=== PATIENT | female | born 1975 | race Two or more races ===

== ENCOUNTER 2017-01-01 17:09 | Outpatient (CLI) | payer MEDICAID ==
[~2017-01-01] VITALS: Ht 162.6 cm; Wt 166.8 kg
[2017-01-01 17:25] VITALS: BP 125/60
[2017-01-01 17:54] LABS: DAU SCREEN DISCLAIMER
[2017-01-01 18:33] LABS: BLOOD UREA NITROGEN 7 mg/dL (7-18)
[2017-01-01 18:37] LABS: ASPARTATE AMINO TRANSFERASE 9 U/L (15-37)
[2017-01-01 18:52] LABS: ANISOCYTOSIS 2+
[2017-01-01 18:53] LABS: HYPOCHROMIA 1+; MICROCYTOSIS 1+; POLYCHROMASIA 1+; TARGET CELLS 1+
[2017-01-03] MEDS ORDERED: PREN1TAB60 PO (11:41)
[2017-01-03] MEDS ORDERED: GLYB5TAB3 PO (11:41)
[2017-01-03] MEDS ORDERED: FERR324T5 PO (13:02)
[2017-01-05] MEDS ORDERED: OXYC-302 PO (12:01)
[2017-01-05] MEDS ORDERED: IBUP800T PO (12:02)
[2017-01-05] MEDS ORDERED: DOCU-30 PO (12:03)
[2017-01-05] MEDS ORDERED: FERR325T20 PO (12:04)
== END 2017-01-01 20:09 | disposition home or self-care (01) ==
LOC: LDOP 17:09
PROVIDERS: ATTEND Obstetrics & Gynecology
DX: O09.523 Supervision of elderly multigravida, third trimester (principal); O26.893 Other specified pregnancy related conditions, third trimester; R06.02 Shortness of breath; O24.419 Gestational diabetes mellitus in pregnancy, unspecified control; O11.3 Pre-existing hypertension with pre-eclampsia, third trimester; O99.333 Smoking (tobacco) complicating pregnancy, third trimester; F17.200 Nicotine dependence, unspecified, uncomplicated; Z3A.35 35 weeks gestation of pregnancy
CPT/HCPCS: 36415; 59025; 76805; 76819; 80053; 80307; 81001; 82570; 82962; 83036; 84156; 84550; 85025; 99211; G0463